=== PATIENT | female | born 1950 | race Caucasian/White ===

== ENCOUNTER 2017-12-13 15:09 | Outpatient (REF) | payer MEDICARE, MEDICAID, SELFPAY ==
[2017-12-13 23:41] LABS: HCT 38.5 % (36.0-46.0); Mean Corp. HGB Concentration 31.2 g/dL (32.0-36.0); Mean Corpuscular Hemoglobin 29.1 pg (27.0-33.0); Mean Corpuscular Volume 93.2 fL (80-95); Mean Platelet Volume 12.2 fL (8.0-11.0); Platelet Count 191 x1000/uL (130-400); RBC 4.13 m/cumm (4.00-5.20); RBC Distribution Width 14.9 % (11.7-14.6); White Blood Cell Count 13.08 k/cumm (4.4-10.8)
[2017-12-14 00:03] LABS: Anion Gap 3.8 mmol/L (3-11); BUN 37 mg/dL (7-18); CO2 32.2 mmol/L (21.0-32.0); CREATININE 1.59 mg/dL (0.55-1.02); Calcium 8.9 mg/dL (8.5-10.1); Chloride 103 mmol/L (98-107); Estimated GFR 32.58 (mL/min/1.73m2); Glucose 147 mg/dL (70-100); Potassium 4.9 mmol/L (3.5-5.1); Sodium 139 mmol/L (136-145); TSH (W/Ref FT4) 7.72 uIU/mL (0.358-3.74)
[2017-12-14 00:25] LABS: FREE T4 0.76 ng/dL (0.76-1.46)
[2017-12-14 04:36] LABS: Vitamin D 25 Total 33.8 ng/ml (30-100)
== END 2017-12-13 15:29 ==
LOC: NCHCN 15:09
PROVIDERS: Visit Provider Family Medicine
DX: E11.40 Type 2 diabetes mellitus with diabetic neuropathy, unspecified (principal); I10 Essential (primary) hypertension; E55.9 Vitamin D deficiency, unspecified; R53.83 Other fatigue
CPT/HCPCS: 80048; 82306; 85027; 84439; 84443

== ENCOUNTER 2018-04-27 12:16 | Outpatient (REF) | payer MEDICARE, MEDICAID, SELFPAY | END 2018-04-27 12:36 | LOC: NCHCN 12:16 | PROVIDERS: Visit Provider Family Medicine | DX: E03.9 Hypothyroidism, unspecified (principal) | CPT/HCPCS: 84443 ==

== ENCOUNTER 2018-06-14 12:09 | Outpatient (REF) | payer MEDICARE, MEDICAID, SELFPAY ==
[2018-06-14 21:38] LABS: ALT 25 U/L (12-78); AST 22 U/L (15-37); Albumin 3.5 g/dL (3.4-5.0); Alkaline Phosphatase 147 U/L (46-116); Anion Gap 8.9 mmol/L (3-11); BUN 37 mg/dL (7-18); Bilirubin, Total 0.5 mg/dL (0.2-1.0); CO2 31.1 mmol/L (21.0-32.0); CREATININE 1.54 mg/dL (0.55-1.02); Calcium 8.6 mg/dL (8.5-10.1); Chloride 102 mmol/L (98-107); Estimated GFR 33.81 (mL/min/1.73m2); Glucose 193 mg/dL (70-100); Potassium 4.6 mmol/L (3.5-5.1); Sodium 142 mmol/L (136-145); TSH 6.99 uIU/mL (0.358-3.74); Total Protein 7.6 g/dL (6.4-8.2)
[2018-06-16 13:46] LABS: Hepatitis C Ab w Rflx HCV PCR Negative (NEGAT)
== END 2018-06-14 12:29 ==
LOC: NCHCN 12:09
PROVIDERS: Visit Provider Family Medicine
DX: R53.83 Other fatigue (principal); E11.9 Type 2 diabetes mellitus without complications; I10 Essential (primary) hypertension; F33.9 Major depressive disorder, recurrent, unspecified; Z11.59 Encounter for screening for other viral diseases
CPT/HCPCS: 80053; 86803; 84443

== ENCOUNTER 2018-08-21 15:10 | Outpatient (REF) | payer MEDICARE, MEDICAID, SELFPAY ==
[2018-08-21 21:58] LABS: TSH 3.88 uIU/mL (0.358-3.74)
== END 2018-08-21 15:30 ==
LOC: NCHCN 15:10
PROVIDERS: Visit Provider Family Medicine
DX: E03.9 Hypothyroidism, unspecified (principal)
CPT/HCPCS: 84443

== ENCOUNTER 2018-10-19 13:28 | Outpatient (REF) | payer MEDICARE, MEDICAID, SELFPAY ==
[2018-10-19 21:55] LABS: TSH (W/Ref FT4) 1.69 uIU/mL (0.358-3.74)
== END 2018-10-19 13:48 ==
LOC: NCHCN 13:28
PROVIDERS: Visit Provider Family Medicine
DX: E03.9 Hypothyroidism, unspecified (principal)
CPT/HCPCS: 84443

== ENCOUNTER 2018-12-12 14:19 | Outpatient (REF) | payer MEDICARE, MEDICAID, SELFPAY ==
[2018-12-13 03:57] LABS: Vitamin B12 1133 pg/mL (193-986)
[2018-12-13 05:37] LABS: Anion Gap 8.2 mmol/L (3-11); BUN 44 mg/dL (7-18); CO2 28.8 mmol/L (21.0-32.0); Calcium 8.5 mg/dL (8.5-10.1); Chloride 101 mmol/L (98-107); Estimated GFR 32.25 (mL/min/1.73m2); Glucose 221 mg/dL (70-100); Potassium 4.8 mmol/L (3.5-5.1); Sodium 138 mmol/L (136-145)
== END 2018-12-12 14:39 ==
LOC: NCHCN 14:19
PROVIDERS: Visit Provider Family Medicine
DX: E11.9 Type 2 diabetes mellitus without complications (principal); N18.3 Chronic kidney disease, stage 3 (moderate); R53.83 Other fatigue
CPT/HCPCS: 80048; 82607

== ENCOUNTER 2019-02-13 18:26 | Outpatient (REF) | payer MEDICARE, MEDICAID, SELFPAY ==
[2019-02-13 21:28] LABS: HCT 37.6 % (36.0-46.0); HGB 11.7 g/dL (12.0-15.5); Mean Corp. HGB Concentration 31.1 g/dL (32.0-36.0); Mean Corpuscular Hemoglobin 29.4 pg (27.0-33.0); Mean Corpuscular Volume 94.5 fL (80-95); Platelet Count 210 x1000/uL (130-400); RBC 3.98 m/cumm (4.00-5.20); RBC Distribution Width 15.2 % (11.7-14.6); White Blood Cell Count 11.42 k/cumm (4.4-10.8)
[2019-02-13 21:53] LABS: ALT 33 U/L (14-59); AST 20 U/L (15-37); Albumin 3.4 g/dL (3.4-5.0); Alkaline Phosphatase 134 U/L (46-116); Anion Gap 5.6 mmol/L (3-11); BUN 47 mg/dL (7-18); Bilirubin, Total 0.6 mg/dL (0.2-1.0); CO2 32.4 mmol/L (21.0-32.0); CREATININE 1.76 mg/dL (0.55-1.02); Chloride 104 mmol/L (98-107); Estimated GFR 28.89 (mL/min/1.73m2); Glucose 110 mg/dL (70-100); Potassium 5.6 mmol/L (3.5-5.1); Sodium 142 mmol/L (136-145); TSH 0.88 uIU/mL (0.36-3.74); Total Protein 7.7 g/dL (6.4-8.2)
== END 2019-02-13 18:46 ==
LOC: NCHCN 18:26
PROVIDERS: Visit Provider Family Medicine
DX: R53.1 Weakness (principal); R42 Dizziness and giddiness
CPT/HCPCS: 80053; 85027; 84443

== ENCOUNTER 2019-05-31 17:38 | Outpatient (REF) | payer MEDICARE, MEDICAID, SELFPAY ==
[2019-05-31 20:41] LABS: Anion Gap 7.4 mmol/L (3-11); BUN 34 mg/dL (7-18); CO2 32.6 mmol/L (21.0-32.0); Calcium 8.6 mg/dL (8.5-10.1); Chloride 103 mmol/L (98-107); Estimated GFR 30.07 (mL/min/1.73m2); Glucose 158 mg/dL (74-106); Potassium 4.6 mmol/L (3.5-5.1); Sodium 143 mmol/L (136-145)
== END 2019-05-31 17:58 ==
LOC: NCHCN 17:38
PROVIDERS: Visit Provider Family Medicine
DX: E87.5 Hyperkalemia (principal)
CPT/HCPCS: 80048

== ENCOUNTER 2019-06-17 14:08 | Outpatient (REF) | payer MEDICARE, MEDICAID, SELFPAY ==
[2019-06-17 20:55] LABS: Anion Gap 11.3 mmol/L (3-11); BUN 35 mg/dL (7-18); CO2 26.7 mmol/L (21.0-32.0); CREATININE 1.58 mg/dL (0.55-1.02); Calcium 8.8 mg/dL (8.5-10.1); Chloride 105 mmol/L (98-107); Estimated GFR 32.72 (mL/min/1.73m2); Glucose 155 mg/dL (74-106); Potassium 4.3 mmol/L (3.5-5.1); Sodium 143 mmol/L (136-145)
== END 2019-06-17 14:28 ==
LOC: NCHCN 14:08
PROVIDERS: Visit Provider Internal Medicine
DX: E87.5 Hyperkalemia (principal)
CPT/HCPCS: 80048

== ENCOUNTER 2019-06-20 13:58 | Outpatient (REF) | payer MEDICARE, MEDICAID, SELFPAY ==
[2019-06-20 20:42] LABS: Anion Gap 7.1 mmol/L (3-11); BUN 37 mg/dL (7-18); CO2 31.9 mmol/L (21.0-32.0); CREATININE 1.71 mg/dL (0.55-1.02); Calcium 8.6 mg/dL (8.5-10.1); Chloride 103 mmol/L (98-107); Estimated GFR 29.87 (mL/min/1.73m2); Glucose 118 mg/dL (74-106); Potassium 4.5 mmol/L (3.5-5.1); Sodium 142 mmol/L (136-145)
[2019-06-20 20:43] LABS: Abs Immature Grans 0.16 k/cumm (0.0-0.09); Absolute Basophil Count 0.05 k/cumm (0.0-0.2); Absolute Eosinophil Count 0.19 k/cumm (0.0-0.7); Absolute Monocyte Count 1.07 k/cumm (0.11-0.7); Absolute Neutrophil Count 6.73 k/cumm (1.2-6.7); Basophils % 0.5; Eosinophils % 1.8; HCT 36.4 % (36.0-46.0); HGB 11.4 g/dL (12.0-15.5); Immature Grans % 1.5 %; Lymphocytes % 21.9; Mean Corp. HGB Concentration 31.3 g/dL (32.0-36.0); Mean Corpuscular Hemoglobin 29.6 pg (27.0-33.0); Mean Corpuscular Volume 94.5 fL (80-95); Mean Platelet Volume 12.3 fL (8.0-11.0); Monocytes % 10.2; Neutrophils % 64.1; Platelet Count 192 x1000/uL (130-400); RBC 3.85 m/cumm (4.00-5.20); RBC Distribution Width 15.4 % (11.7-14.6)
== END 2019-06-20 14:18 ==
LOC: NCHCN 13:58
PROVIDERS: Visit Provider Nurse Practitioner Family
DX: I25.2 Old myocardial infarction (principal); D64.9 Anemia, unspecified
CPT/HCPCS: 80048; 85025

== ENCOUNTER 2019-12-31 21:41 | Outpatient (REF) | payer MEDICARE, MEDICAID, SELFPAY ==
[2019-12-31 22:23] LABS: ALT 28 U/L (14-59); AST 16 U/L (15-37); Albumin 3.3 g/dL (3.4-5.0); Alkaline Phosphatase 174 U/L (46-116); Anion Gap 9.9 mmol/L (3-11); BUN 67 mg/dL (7-18); Bilirubin, Total 0.6 mg/dL (0.2-1.0); CO2 27.1 mmol/L (21.0-32.0); CREATININE 2.13 mg/dL (0.55-1.02); Calcium 8.7 mg/dL (8.5-10.1); Calculated LDL 57 mg/dL (<100); Chloride 102 mmol/L (98-107); Cholesterol 129 mg/dL (<200); Estimated GFR 23.11 (mL/min/1.73m2); Glucose 140 mg/dL (74-106); HDL Cholesterol 34 mg/dL (40-60); Potassium 4.5 mmol/L (3.5-5.1); Sodium 139 mmol/L (136-145); TSH 0.89 uIU/mL (0.36-3.74); Total Protein 7.4 g/dL (6.4-8.2); Triglyceride 192 mg/dL (<150)
== END 2019-12-31 22:01 ==
LOC: NCHCN 21:41
PROVIDERS: Visit Provider Family Medicine
DX: I10 Essential (primary) hypertension (principal); E03.9 Hypothyroidism, unspecified; I25.10 Atherosclerotic heart disease of native coronary artery without angina pectoris; N18.3 Chronic kidney disease, stage 3 (moderate)
CPT/HCPCS: 80053; 80061; 84443

== ENCOUNTER 2020-06-30 18:44 | Outpatient (REF) | payer MEDICARE, MEDICAID, SELFPAY ==
[2020-06-30 21:48] LABS: Anion Gap 8.1 mmol/L (3-11); BUN 59 mg/dL (7-18); CO2 28.9 mmol/L (21.0-32.0); CREATININE 1.8 mg/dL (0.55-1.02); Calcium 8.8 mg/dL (8.5-10.1); Chloride 103 mmol/L (98-107); Estimated GFR 27.98 (mL/min/1.73m2); Glucose 173 mg/dL (74-106); Sodium 140 mmol/L (136-145)
[2020-06-30 22:01] LABS: Hemoglobin A1C 7.2 % (<5.7)
== END 2020-06-30 18:45 | disposition home or self-care (01) ==
LOC: NCHCN 18:44
PROVIDERS: Visit Provider Family Medicine
DX: E11.9 Type 2 diabetes mellitus without complications (principal); N18.30 Chronic kidney disease, stage 3 unspecified
CPT/HCPCS: 80048; 83036